=== PATIENT | female | born 1980 | race Hispanic/Latino ===

== ENCOUNTER 2024-09-26 05:32 | Day surgery (SDC) | payer SELFPAY ==
[~2024-09-26] VITALS: Ht 152.4 cm; Wt 87.9 kg
[2024-09-26] VITALS (8 sets, daily range): BP systolic 103–117; BP diastolic 70–83
[~2024-09-26 05:32] MED LIST: ACETAMINOPHEN500 M1 PO; LACTATED RINGER'S 1,000 ML IV SCH
[2024-09-26 06:36] LABS: BASOPHILS 0.2 % (0.1-1.2); BASOPHILS, ABSOLUTE 0.01 K/uL (0.01-0.08); EOSINOPHILS 5.1 % (0.7-5.8); EOSINOPHILS, ABSOLUTE 0.32 K/uL (0.04-0.36); LYMPHOCYTES 32.0 % (19.3-51.7); MCH 25.9 PG (25.6-32.2); MCHC 32.0 g/dL (32.2-35.5); MCV 80.9 fL (79.4-94.8); MONOCYTES 7.3 % (4.7-12.5); MONOCYTES, ABSOLUTE 0.46 K/uL (0.24-0.86); NEUTROPHILS 55.2 % (34.0-71.1); NEUTROPHILS, ABSOLUTE 3.47 K/uL (1.56-6.13); RBC 4.91 M/uL (3.93-5.22)
[2024-09-26] MEDS ORDERED: IBLOOD GLUCOSE TEST STRIP 1 EA TEST VI PRN ×2 (07:00→08:30)
[2024-09-26] MEDS ORDERED: CEFAZOLIN SODIUM 2 GM/20 ML SYR IV SCH (07:00)
[2024-09-26] MEDS ORDERED: LIDOCAINE HCL 1% 5 ML SDV INJ ONE (07:00)
[2024-09-26] MEDS ORDERED: BUPIVACAINE HCL 0.5% 30 ML VIAL ONE (07:14)
[2024-09-26] MEDS ORDERED: KETAMINE in NS 50 MG/5 ML SYR ONE (07:18)
[2024-09-26] MEDS ORDERED: fentaNYL citrate 100 MCG/2 ML VIAL ONE ×2 (07:18→09:20)
[2024-09-26] MEDS ORDERED: LIDOCAINE HCL 2% 5 ML SDV ONE ×2 (07:19→08:52)
[2024-09-26] MEDS ORDERED: ACETAMINOPHEN 1,000 MG/100 ML VIAL ONE (07:19)
[2024-09-26] MEDS ORDERED: MAGNESIUM SULFATE 1 GM/2 ML VIAL ONE ×2 (07:19→08:52)
[2024-09-26] MEDS ORDERED: DEXAMETHASONE SOD PHOS 4 MG/ML VIAL ONE (07:19)
[2024-09-26] MEDS ORDERED: ROCURONIUM BROMIDE 50 MG/5 ML SYR ONE ×2 (07:19→09:01)
[2024-09-26] MEDS ORDERED: SODIUM CHLORIDE 0.9% 40 ML IV ONE ×2 (07:19→08:52)
[2024-09-26] MEDS ORDERED: MIDAZOLAM HCL 2 MG/2 ML VIAL ONE (07:35)
[2024-09-26] MEDS ORDERED: estradioL 0.01% 42.5 GM TUBE ONE (07:43)
[2024-09-26] MEDS ORDERED: NALOXONE HCL 0.4 MG SYR IV PRN (08:30)
[2024-09-26] MEDS ORDERED: HYDROmorphone HCL 1 MG/ML SYR IV PRN (08:30)
[2024-09-26] MEDS ORDERED: KETOROLAC TROMETHAMINE 30 MG/ML VIAL IV PRN (08:30)
[2024-09-26] MEDS ORDERED: fentaNYL citrate 50 MCG/ML SDV IV PRN (08:30)
[2024-09-26] MEDS ORDERED: SUGAMMADEX SODIUM 200 MG/2 ML ML ONE (09:07)
--- NOTE | 2024-09-26 09:46 | NUR ---
09/26/24 0946 Francine,Vicenta 0975 PT ARRIVED TO PACU ON 6L VIA MASK, PT ASLEEP AND RESP EVEN AND UNLABORED. VSS. 0941 PT WAKES TO VERBAL STIMULI AND O2 MASK REMOVED. PT DENIES PAIN AND NAUSEA AND EASILY FALLS BACK TO SLEEP.
--- NOTE | 2024-09-26 10:26 | NUR ---
1010 PT ARRIVED TO DAY SURGERY FROM PACU VIA STREACHER. PT HAS JUAN IN PLACE, DRAINING CLEAR YELLOW URINE. PT HAS VAGINAL PACKING IN PLACE. PT REPORTING NO NAUSEA BUT 6/10 PAIN. PT SIPPING ON WATER AND EATING JELLO. DISCUSSED PLAN FOR JELLO TO BE EATEN AND THEN A PAIN PILL ON BOARD. PT AT BEDSIDE. PER CRACKER OFFNENA Maria, JUAN IS TO BE D/C AT 1130 AND VAGINAL PACKING REMOVED AT 1300. PT HAS CALL LIGHT WITHIN REACH, BED IS LOW AND LOCKED.
[2024-09-26] MEDS ORDERED: OXYCODONE/APAP 5/325 TAB PO PRN (10:30)
--- NOTE | 2024-09-26 10:36 | NUR ---
1035 pain mediction given per emar. pt now stating her pain is 8/10.
--- NOTE | 2024-09-26 10:45 | NUR ---
1045 SPOKE WITH RUDY KIRKPATRICK, TORODOL NOT GIVEN PER SHIP MANAGER. OK'D BY RUDY KIRKPATRICK TO GIVE TORODOL ORDER IN DAY SURGERY NOW.
--- NOTE | 2024-09-26 10:54 | NUR ---
1049 TORODOL GIVEN IV PER EMAR. PT STATES SHE IS STILL VERY PAINFUL BUT PAIN IS COMING DOWN. PT AT BEDSIDE WITH PT. CALL LIGHT WITHIN REACH.
--- NOTE | 2024-09-26 11:32 | NUR ---
1130 JUAN CATHETER REMOVED PER VERBAL ORDER TO REMOVE JUAN AT 1130. 10 MLS OF WATER REMOVED FROM CATHETER BALLOON. CATHETER REMOVED AND 400 MLS OF CLEAR YELLOW URINE NOTED IN JUAN BAG. PT REPORTS PAIN IS DOING WELL. PT HAS CALL LIGHT WITHIN REACH AND PERSONAL ITEMS WITHIN REACH. PT AT BEDSIDE.
--- NOTE | 2024-09-26 12:14 | NUR ---
1200 HOURLY ROUNDING DONE WITH PT. PT REPORTS TOLERABLE 3/10 PAIN. PT IS SIPPING ON APPLE JUICE AND WATER. PT REQUESTED SOUP, ORDER PLACED FOR SOUP FOR PT. VITALS TAKEN. PACKING ASSESSED, CLEAN AND DRY. CONFIRMED WITH DR FULLER TO REMOVE PACKING AROUND 1300 TODAY. PT IS COMFORTABLE IN BED, PT SPOUSE IN ROOM WITH PT.
--- NOTE | 2024-09-26 12:52 | NUR ---
assisted up t o br voids 200mls light yellow urine. returned to stretcher. c/o dizziness lying back down scds on. daughter at bs. denies any needs at this time
--- NOTE | 2024-09-26 13:07 | NUR ---
1300 HOURLY ROUNDING DONE WITH PT. PT REPORTING 3/10 PAIN, TOLERABLE AT THIS TIME. PT REPORTS NO NAUSEA AT THIS TIME. PT HAS DAUGHTER AT BEDSIDE. PACKING REMOVED PER DR VERBAL ORDER. PACKING IN PLACE BRACELET REMOVED FROM PT. PT REPORTS BEING DIZZY WHEN STANDING. SPOKE WITH PT ABOUT GETTING UP AGAIN IN ABOUT AN HOUR TO SEE IF DIZZINESS IS BETTER. PT UNDERSTANDING AT THIS TIME. PT DAUGHTER TRANSLATING PER PT REQUEST.
[2024-09-26] MEDS ORDERED: SEVOFLURANE 250 ML BTL INH ONE (14:45)
--- NOTE | 2024-09-26 14:57 | NUR ---
1400 hourly rounding done with pt, pt reports tolerable 3/10 pain. when sitting pt on edge of the bed pt becomes nausous and dizzy. laid pt back in bed and symtoms subside. bolusing fluids oF LR to see if this assists in pt's dizziness and nausea. 1445 PT UP TO COMMODE DUE TO PT NEEDING TO URINATE. PT STILL GETS DIZZY WHEN STANDING AND THEN BECOMES NAUSOUS. PT ABLE TO VOID 300 MLS OF CLEAR YELLOW URINE. PT HAS SOME VAGINAL BLEEDING WHEN MOVING. NAHID PAD PLACED ONE PT BACK IN BED.
--- NOTE | 2024-09-26 15:11 | NUR ---
VO PER DR FULLER FOR 8MG OF ZOFRAN NOW. RUPERTO PLACED IN COMPUTER.
--- NOTE | 2024-09-26 15:31 | NUR ---
1529 NAUSEA MEDICATION GIVEN PER EMAR.
--- NOTE | 2024-09-26 16:27 | NUR ---
1615 PT ABLE TO AMBULATE TO BATHROOM WITH MINIMAL ASSISTANCE. PT REPORTING 3/10 TOLERABLE PAIN. PT ABLE TO VOID. NO CLOTS NOTED, MINOR VAGINAL BLEEDING NOTED IN TOILET BOWL. PT ABLE TO AMBULATE BACK TO BED. PT REPORTS NO NAUSEA AT THIS TIME WHEN GETTING UP. PT DOES STILL REPORT SOME DIZZINESS WHEN STANDING. PT CONTINUES TO STATE THAT SHE WANTED TO SPEND THE NIGHT, EVEN THOUGH PT HAS MET ALL CRITERIA TO GO HOME. 1630 CALLED AND SPOKE WITH DR FULLER AND DISCUSSED PT DESIRE TO SPEND THE NIGHT. DR FULLER STATES THERE IS NO REASON FOR PT TO SPEND THE NIGHT, STATES THAT HE WILL COME SPEAK WITH THE PT BEFORE WE SEND THEM HOME TO ADDRESS PT'S FEARS ABOUT GOING HOME.
--- NOTE | 2024-09-26 16:48 | NUR ---
5500 HOURLY ROUNDING DONE WITH PT. VITALS TAKEN. IV ASSESSED. PT SPOUSE AT [facility]. PT REPORTS TOLERABLE 3/10 PAIN, AND NO NAUSEA AT THIS TIME. INFORMED PT THAT DR WILL COME DOWN WITHIN THE NEXT 30 MINTUES TO SPEAK WITH PT ABOUT PLAN FOR DISCHARGE. PT UNDERSTANDING AT THIS TIME. PT HAS CALL ALEXANDR HAMMONDS AND SPOUSE AT BEDSIDE.
--- NOTE | 2024-09-26 17:20 | OR ---
[address] [address] Signed DATE OF OPERATION: 09/26/2024 SURGEON: Katarzyna Singh MD PREOPERATIVE DIAGNOSES: 1. Dysfunctional uterine bleeding. 2. Uterine prolapse. POSTOPERATIVE DIAGNOSES: 1. Dysfunctional uterine bleeding. 2. Uterine prolapse. PROCEDURE: Total vaginal hysterectomy, bilateral fimbriectomy. FINDINGS: Eight week size uterus, mild uterine prolapse, normal ovaries and tubes. IV FLUIDS: 800 mL crystalloid. ESTIMATED BLOOD LOSS: 50 mL of blood. URINE OUTPUT: 50 mL clear urine. DRAINS: Lopez to gravity. SPECIMENS: Uterus with cervix, bilateral fimbriae. COMPLICATION: None apparent. COUNTS: Correct x2. TECHNIQUE IN DETAIL: Electronically Signed By: KATARZYNA SINGH MD 09/26/24 1720 PATIENT NAME: ROXANA OAKLEY OPERATIVE REPORT DATE OF : 76 REPORT #: [id number] PHYSICIAN: KATARZYNA SINGH MD PCP: PHOENIX OLIVER (SPIKE) DO REPORT IS CONFIDENTIAL AND NOT TO BE RELEASED WITHOUT AUTHORIZATION [address] [address] Signed With informed consent and negative hCG, the patient was taken to the operating room where she underwent rapid sequence induction of general anesthesia. She then underwent a brief exam under anesthesia. She was prepped and draped in sterile fashion. At the beginning of the case, her lower extremities were also placed in SCD pneumatic compression devices and she was given 2 g of Ancef IV per protocol. Time-out was also performed per protocol. A posterior weighted speculum was placed in the vagina. A right-angle retractor was placed anteriorly. The cervix was grasped with a single-tooth tenaculum. The cervical vaginal reflection anteriorly was noted and marked with the electrocautery device. The same procedure was carried out with the posterior chamber. 20 mL of 0.5% Marcaine with epinephrine were injected in the cervical mucosa circumferentially. Using electrocautery, the cervical mucosa was incised circumferentially around the cervix. The anterior mucosa was elevated and the underlying mucosal fascia was incised with Metzenbaum scissors. After we dissected back approximately 1 to 1.5 cm, blunt dissection was used to dissect the overlying mucosal and vesicular tissue from the underlying cervix. The peritoneal reflection was identified and grasped with pickups. It was then incised with Metzenbaum scissors next to the cervical canal. We entered the peritoneum and anterior cavity and the right angle retractor was then inserted. The suction device was then used to aid in retraction and there was direct visualization of omentum and small bowel. We then tilted the right angle retractor 45 degrees and a metal bladder catheter was inserted and the bladder was emptied for the above-mentioned amount. Clear urine was noted. Attention was then turned to the posterior cul-de-sac. The cervix was elevated with the use of the tenacula. The cervical rectal fascia was then incised posteriorly. We entered the posterior peritoneum sharply and noted clear fluid. Stay suture using 0 Vicryl was placed posteriorly. The posterior entry was enlarged with blunt dissection and a long posterior weighted speculum was then placed. Using the Yasmine clamp, the left uterosacral ligament was clamped, cut, and suture ligated. The suture was tagged with a straight hemostat. Same procedure was carried out on the right uterosacral ligament. The right cardinal ligament was then clamped, cut, and suture ligated. We transected the uterine artery at this point as well. The suture was cut. Same procedure was carried out on the contralateral cardinal ligament and again we included the uterine artery on this pedicle. We took a subsequent bite of the broad ligament on both the left and right sides and again suture ligated with 0 Vicryl. At this point, just the tubo-ovarian ligament was left on either side. We flipped the uterus posteriorly and were able to easily get a Yasmine clamp on either side of the tubo-ovarian ligament. We then excised the uterus sharply ensuring no bowel present near the clamps. Each tubo-ovarian ligament was then ligated with 0 Vicryl. We did two sutures, the 1st was a reapproximating bunching suture and then we did a 2nd 0 Vicryl suture to ensure complete collapse of the tubo-ovarian ligament. These sutures Electronically Signed By: KATARZYNA SINGH MD 09/26/24 1720 PATIENT NAME: ROXANA OAKLEY OPERATIVE REPORT DATE OF : 76 REPORT #: [id number] PHYSICIAN: KATARZYNA SINGH MD PCP: PHOENIX OLIVER (SPIKE) DO REPORT IS CONFIDENTIAL AND NOT TO BE RELEASED WITHOUT AUTHORIZATION [facility] [address] [place] [id number] Signed were tagged with curved hemostats. We then inspected the pedicles all the way around. There was some area of oozing on the right side which was rendered hemostatic using an 0 Vicryl figure of eight stitch, placed along the sidewall very superficially. Good hemostasis was noted at this point. We then inspected the right ovary and fallopian tube. The right ovary seemed to be completely within normal limits. We attempted to deliver the right fallopian tube to the incision and were able to get only the fimbria. At this point, the distal end of the right fallopian tube was clamped and the fimbria were removed. We put an 0 Vicryl stitch in the distal end of the right fallopian tube to ensure good hemostasis. We carried out the same procedure on the left fallopian tube. Of note, the left ovary was also completely normal in appearance. We then ran the posterior vaginal cuff using 2-0 Vicryl in a running locked fashion. We then closed the vaginal cuff using 0 Vicryl in a running locked fashion proceeding in an anterior to a posterior direction. The pedicles of the uterosacral ligaments were also reapproximated using the sutures that were still in place. An estradiol laden vaginal pack was placed and a Lopez was placed at the end of the procedure. DISPOSITION: The patient was extubated in the operating room and she was taken to the recovery room in stable condition. Katarzyna Singh MD BB/DEUCEL /[id number] Copies: ~ Electronically Signed By: KATARZYNA SINGH MD 09/26/24 1720 PATIENT NAME: ROXANA OAKLEY OPERATIVE REPORT DATE OF : 76 REPORT #: [id number] PHYSICIAN: KATARZYNA SINGH MD PCP: PHOENIX OLIVER (SPIKE) DO REPORT IS CONFIDENTIAL AND NOT TO BE RELEASED WITHOUT AUTHORIZATION
--- NOTE | 2024-09-26 17:34 | NUR ---
1655 DR IN ROOM SPEAKING WITH PT. SPOKE WITH AND DR BOOGIE TO DISCHARGE PT. 1700 DISCHARGE INFORMATION GONE OVER WITH PT AND SPOUSE. SPOUSE TRANSLATING FOR PT PER PT REQUEST. NO QUESTIONS AT THIS TIME. 1710 PT UP TO BATHROOM AND VOIDS. PT ABLE TO AMBULATE BACK TO ROOM. PT SPOUSE ASSISTING PT GETTING DRESSED. IV DISCONTINUED FOR DISCHARGE. 1723 PT DISCHARGED FROM DAY SURGERY VIA WHEELCHAIR TO FRONT OF THE HOSPITAL TO PT'S SPOUSE'S VEHCILE. PT SPOUSE HAS DISCHARGE INFO IN HAND.
--- NOTE | 2024-10-02 14:26 | PATH ---
[facility] [address] [place], [place] [address] Signed SPECIMEN(S): A UTERUS, CERVIX, PORTION OF FAL TUBES SPECIMEN SOURCE: A. UTERUS, CERVIX, PORTION OF FAL TUBES CLINICAL HISTORY: Uterine prolapse FINAL PATHOLOGIC DIAGNOSIS: Uterus with bilateral fallopian tubes, hysterectomy with bilateral salpingectomy: - Cervix: Focal HSIL (CIN2, moderate dysplasia). - Endometrium: Inactive to weakly proliferative endometrium. - Negative for hyperplasia, atypia, and malignancy. - Lower uterine segment: Focus of endometrial tissue with markedly dilated glands. Negative for atypia and malignancy. - Myometrium: Benign myometrium with no specific histopathologic abnormality. - Serosa: Benign serosa with no specific histopathologic abnormality. - Fallopian tubes: Portions of fallopian tube with fimbriated ends. - Negative for atypia and malignancy. COMMENT: The entire cervix is submitted for review. A focal area of HSIL (CIN2, moderate dysplasia) is noted. No invasive neoplasm is noted and the margins are free of dysplasia. The case is signed out by Dr Rai, in Dr Carr's absence. SDL MICROSCOPIC EXAMINATION: Histologic sections of all submitted blocks are examined by light microscopy. These findings, together with the gross examination, support the pathologic diagnosis. GROSS DESCRIPTION: The specimen, labeled and designated "Pankaj Oakley, " and designated on the requisition "cervix; uterus portions of bilateral fallopian tubes," is received in formalin and consists of 75 gram uterus and cervix with portions of fimbriae. The uterus is 3.4 x 3.3 x 9.8 cm (cornu-cornu x anterior-posterior x fundus-ectocervix). The serosal surface is pink-aceves smooth. The ectocervical mucosa is pale pink and smooth. Serial sectioning of the cervix fails to PATIENT NAME: RXOANA OAKLEY PATHOLOGY DATE OF : 76 REPORT #: [id number] PHYSICIAN: [facility] PCP: PHOENIX OLIVER (SPIKE) DO REPORT IS CONFIDENTIAL AND NOT TO BE RELEASED WITHOUT AUTHORIZATION [facility] [address] [place], [place] [address] Signed demonstrate any gross abnormalities. The irregular shaped endometrial cavity is partially lined by a pink-white dense rubbery fibrous tissue and by a pink smooth and focally congested endometrium that has an average thickness of 0.1 cm. Sectioning through the uterus reveals a pink moderately trabeculated myometrium the lower uterine segment displays a defect that is a 1.0 cm in greatest dimension. Separate within the container are three portions of fimbriated that range in size from 1.2 cm up to 2.3 cm in greatest dimension. A discrete fallopian tube is not grossly identified. King Maker sections are submitted in five cassettes. 10/01/2024: The remainder of the cervix is submitted per Arlen Carr MD's request as follows: A6-A7 12:00 cervix; A8 3:00 cervix; A9-A10 6:00 cervix; A11 9:00 cervix. Cassette Summary: (A1-A2) fimbriae, entirely submitted (A3) cervix (A4) uterine wall (A5) lower uterine segment defect FB (under the direct supervision of a pathologist) The Gross Description was prepared using a voice recognition system. The report was reviewed for accuracy; however, sound-alike word errors, addition and/or deletions may occur. If there is any question about this report, please contact Client Services. ADDITIONAL NOTES: Immunohistochemical and/or in situ hybridization studies if performed in this case included appropriate positive controls that reacted as expected. This test was developed and its performance characteristics determined by [facility]. It has not been cleared or approved by the U.S. Food and Drug Administration. The FDA has determined that such clearance or approval is not necessary. This test is used for clinical purposes. It should not be regarded as investigational or for research. [facility] is certified under the Clinical Laboratory Improvement Amendments of 1988 (CLIA) as qualified to perform high complexity clinical laboratory testing. PERFORMING LABORATORY: Technical component was performed by [facility], [address] [place] [id number] (CLIA# [id number]). Professional interpretation was performed by [facility] Tiera Robb PATIENT NAME: ROXANA OAKLEY PATHOLOGY DATE OF : 76 REPORT #: [id number] PHYSICIAN: [facility] PCP: PHOENIX OLIVER (SPIKE) DO REPORT IS CONFIDENTIAL AND NOT TO BE RELEASED WITHOUT AUTHORIZATION [address] [address] [facility], [address] [facility] [place] [address] (CLIA#: [id number]). Diagnostician: Edvin Rai MD Pathologist Electronically Signed 10/02/2024 Copies: ~ PATIENT NAME: ROXANA OAKLEY PATHOLOGY DATE OF : 76 REPORT #: [id number] PHYSICIAN: [facility] PCP: PHOENIX OLIVER (SPIKE) DO REPORT IS CONFIDENTIAL AND NOT TO BE RELEASED WITHOUT AUTHORIZATION
== END 2024-09-26 17:23 | disposition home or self-care (01) ==
LOC: DS 05:32
PROVIDERS: ATTEND Obstetrics & Gynecology
PROC: 0UT77ZZ Resection of Bilateral Fallopian Tubes, Via Natural or Artificial Opening (ICD-10-PCS; 2024-09-26)
PROC: 0UT97ZZ Resection of Uterus, Via Natural or Artificial Opening (ICD-10-PCS; principal; 2024-09-26 07:30)
DX: N81.4 Uterovaginal prolapse, unspecified (principal); N93.8 Other specified abnormal uterine and vaginal bleeding; N87.1 Moderate cervical dysplasia; Z88.0 Allergy status to penicillin; Z79.899 Other long term (current) drug therapy
CPT/HCPCS: 00944; 36415; 84703; 85025; J0131; J0690; J1100; J1790; J1885; J2003; J2250; J2405; J2704; J3010; J3475; J3490; J7121